=== PATIENT | female | born 1970 | race Caucasian/White ===

== ENCOUNTER 2016-10-11 14:23 | Emergency (ER) | payer MEDICARE, OTHER ==
[2016-10-11 19:22] LABS: HEMOGLOBIN 10.9 gm/dl (12.3-15.3); RED BLOOD COUNT 4.54 M/UL (4.00-5.10); WHITE BLOOD COUNT 9.3 K/UL (4.5-11.0)
[2016-10-11 19:39] LABS: BUN/CREATININE RATIO 20 (0-10)
== END 2016-10-11 21:42 | disposition home or self-care (01) ==
LOC: ER1 14:23
PROVIDERS: Emergency Medicine
DX: R10.2 Pelvic and perineal pain (principal); K76.0 Fatty (change of) liver, not elsewhere classified; I25.10 Atherosclerotic heart disease of native coronary artery without angina pectoris
CPT/HCPCS: 36415; 80053; 81001; 83690; 85025; 85610; 85730; 87086; 93005; 96374; 96375; 96376; 99284; J2270; J2405; J7050; Q9962

== ENCOUNTER → 2020-08-11 | Outpatient (CLI) | payer MEDICARE, OTHER ==
[~2020-08-11] MED LIST: AMITRIPTYLINE100 MG PO; ASPIRIN 325MG325 MG PO; BENTYL 20MG TAB20 MG PO; CYCLOBENZAPRINE5 MG PO; DEXILANT60 MG PO; FEOSOL325 MG PO; GLUCOPHAGE500 MG PO; HYDROCODON-ACE1 EAC2 PO; IBUPROFEN800 MG PO; KEFLEX500 MG PO; LEXAPRO20 MG PO; LIDOCAINE1 EAC1 TP; LODINE CAP 300300 MG PO; MICROZIDE12.5 MG PO; NABUMETONE500 MG PO; NAPROSYN500 MG PO; NEURONTIN 300300 MG PO; NEURONTIN 400400 MG PO; NEURONTIN600 MG PO; NEURONTIN800 MG PO; NITROSTAT0.4 MG SL; NORFLEX 100 MG100 MG PO; ONDANSETRON ODT4 MG PO; PERCOCET 10-321 EACH PO; PERCOCET 5-3251 EACH PO; PERCOCET 7.5-31 EACH PO; PLAVIX 75 MG TA75 MG PO; PRINIVIL20 MG PO; PROCARDIA XL30 MG PO; PROCARDIA10 MG PO; RELAFEN 750 MG750 MG PO; VITAMIN C500 M4 PO; VITAMIN D21250 MCG PO; VITAMIN D250000 UNIT PO; Voltaren Gel 1 % TOP; WELLBUTRIN SR150 M1 PO; ZOCOR40 MG PO; ZOFRAN ODT 4 MG4 MG PO; ZYLOPRIM 100 M100 MG PO
== END ==
LOC: KOH-I 08:59
DX: Z47.1 Aftercare following joint replacement surgery (principal); Z96.698 Presence of other orthopedic joint implants; M19.072 Primary osteoarthritis, left ankle and foot
CPT/HCPCS: 73630

== ENCOUNTER → 2020-11-24 | Outpatient (CLI) | payer MEDICARE, OTHER | LOC: KOH-I 13:43 | DX: M79.672 Pain in left foot (principal); Z96.698 Presence of other orthopedic joint implants | CPT/HCPCS: 73630 ==

== ENCOUNTER → 2021-04-28 | Outpatient (CLI) | payer MEDICARE, OTHER | LOC: KOH-I 09:03 | DX: M79.672 Pain in left foot (principal); M19.072 Primary osteoarthritis, left ankle and foot | CPT/HCPCS: 73610; 73630 ==

== ENCOUNTER 2021-12-08 15:08 | Emergency (ER) | payer MEDICARE, OTHER ==
[2021-12-08 16:28] LABS: HEMOGLOBIN 12.6 gm/dl (12.3-15.3); RED BLOOD COUNT 4.55 M/UL (4.00-5.10); WHITE BLOOD COUNT 8.7 K/UL (4.5-11.0)
[2021-12-08 16:55] LABS: BUN/CREATININE RATIO 18 (0-10)
[2021-12-08] MEDS ORDERED: CYCLOBENZAPRINE10 MG PO (18:34)
== END 2021-12-08 18:42 | disposition home or self-care (01) ==
LOC: ER1 15:08
PROVIDERS: Family Medicine
DX: R10.9 Unspecified abdominal pain (principal); G89.29 Other chronic pain; M54.9 Dorsalgia, unspecified; E11.65 Type 2 diabetes mellitus with hyperglycemia; E11.40 Type 2 diabetes mellitus with diabetic neuropathy, unspecified; J45.909 Unspecified asthma, uncomplicated; Z88.2 Allergy status to sulfonamides; E66.01 Morbid (severe) obesity due to excess calories
CPT/HCPCS: 80053; 81001; 83605; 85025; 87086; 96374; 96375; 99284; J2270; J2405

== ENCOUNTER → 2022-01-26 | Outpatient (CLI) | payer MEDICARE, OTHER ==
[~2022-01-26] MED LIST changes: +CYCLOBENZAPRINE10 MG PO
== END ==
LOC: KOH-I 15:59
DX: M25.571 Pain in right ankle and joints of right foot (principal); M79.671 Pain in right foot; M19.071 Primary osteoarthritis, right ankle and foot; Z96.698 Presence of other orthopedic joint implants
CPT/HCPCS: 73610; 73630